=== PATIENT | male | born 1975 | race Caucasian/White ===

== ENCOUNTER 2018-11-26 12:00 | Emergency (ER) | payer BC ==
[~2018-11-26] VITALS: Ht 185.4 cm; Wt 102.5 kg
[~2018-11-26 12:00] MED LIST: HYDROCODONE-AP1 EAC6 PO; HYDROCODONE-APA1 TA1 PO; [UNRECOGNIZED DRUG - REMARK]
[2018-11-26] MEDS ORDERED: HYDROCODONE-AP1 EAC6 PO (14:24)
[2018-11-26] MEDS ORDERED: NAPROSYN500 MG PO (14:24)
[2018-11-26 14:57] VITALS: BP 142/74
== END 2018-11-26 14:50 | disposition home or self-care (01) ==
LOC: ER 12:00
DX: S83.8X1A Sprain of other specified parts of right knee, initial encounter (principal); F17.210 Nicotine dependence, cigarettes, uncomplicated; Z88.6 Allergy status to analgesic agent; W01.0XXA Fall on same level from slipping, tripping and stumbling without subsequent striking against object, initial encounter; Y92.89 Other specified places as the place of occurrence of the external cause; Y93.89 Activity, other specified; Y99.8 Other external cause status